=== PATIENT | male | born 2000 | race Caucasian/White ===

== ENCOUNTER 2023-08-29 17:31 | Emergency (ER) | payer OTHER ==
[~2023-08-29] VITALS: Ht 175.3 cm; Wt 68.0 kg
[~2023-08-29 17:31] MED LIST: ALBUTEROL2.5 MG/3 M INH; PREDNISONE20 MG PO; QVAR7.3 GM INH; SINGULAIR10 MG PO; VENTOLIN HFA18 GM INH
[2023-08-29] MEDS ORDERED: HYDROmorphone HCL 2 MG TAB PO ONE (18:30)
[2023-08-29] MEDS ORDERED: DILAUDID2 MG PO (19:10)
[2023-08-29 19:24] VITALS: BP 125/71
== END 2023-08-29 19:25 | disposition home or self-care (01) ==
LOC: ED 17:31
DX: S43.101A Unspecified dislocation of right acromioclavicular joint, initial encounter (principal); V00.131A Fall from skateboard, initial encounter; Y93.51 Activity, roller skating (inline) and skateboarding; J45.909 Unspecified asthma, uncomplicated; F17.200 Nicotine dependence, unspecified, uncomplicated; Z79.899 Other long term (current) drug therapy
CPT/HCPCS: 73030

== ENCOUNTER 2024-06-01 01:28 | Emergency (ER) | payer OTHER ==
[~2024-06-01] VITALS: Ht 175.3 cm; Wt 80.0 kg
[~2024-06-01 01:28] MED LIST changes: +DILAUDID2 MG PO
[2024-06-01] MEDS ORDERED: ALBUTEROL/IPRATROPIUM 3 ML NEB INH ONE (03:15)
[2024-06-01 03:32] VITALS: BP 137/81
== END 2024-06-01 03:32 | disposition home or self-care (01) ==
LOC: ED 01:28
DX: J45.909 Unspecified asthma, uncomplicated (principal); F17.200 Nicotine dependence, unspecified, uncomplicated; Z79.899 Other long term (current) drug therapy
CPT/HCPCS: 94640; 99284